=== PATIENT | male | born 1960 | race Caucasian/White ===

== ENCOUNTER 2017-07-14 08:42 | Outpatient (CLI) | payer BC ==
[2017-07-14 12:18] LABS: HEMOGLOBIN A1C 0.68 g/dL
[2017-07-14 12:21] LABS: ALBUMIN/GLOBULIN RATIO 1.6 (1.0-2.2); BILIRUBIN,TOTAL 0.6 mg/dL (0.2-1.0); BUN - BLOOD UREA NITROGEN 17 mg/dL (6-20); CALCIUM 9.4 mg/dL (8.5-10.3); CARBON DIOXIDE - CO2 24 mmol/L (21-32); CHLORIDE 104 mmol/L (101-111); CHOL/HDL RATIO 3.5 (<5.0); CHOLESTEROL 205 mg/dL; CREATININE 0.9 mg/dL (0.6-1.2); GFR - MDRD 86 (>89); GLUCOSE 99 mg/dL (70-100); HDL CHOLESTEROL 58 mg/dL; POTASSIUM 3.8 mmol/L (3.5-5.0); SODIUM 137 mmol/L (135-145); TOTAL PROTEIN 7.3 g/dL (6.7-8.2); TRIGLYCERIDES 469 mg/dL
[2017-07-14 12:41] LABS: LDL CHOLESTEROL,DIRECT 103 mg/dL
== END 2017-07-14 08:43 | disposition home or self-care (01) ==
LOC: LAB.F 08:42
PROVIDERS: ATTEND Internal Medicine
DX: Z79.899 Other long term (current) drug therapy (principal); I10 Essential (primary) hypertension; G62.9 Polyneuropathy, unspecified
CPT/HCPCS: 36415; 80053; 80061; 82550; 83036

== ENCOUNTER 2018-01-19 07:15 | Outpatient (CLI) | payer BC ==
[2018-01-19 11:46] LABS: CHOL/HDL RATIO 4.2 (<5.0); CHOLESTEROL 216 mg/dL; HDL CHOLESTEROL 52 mg/dL; LDL CHOLESTEROL,CALCULATED 88 mg/dL; LDL/HDL RATIO 1.7 (<3.6); VLDL CHOLESTEROL 76 mg/dL
== END 2018-01-19 07:16 | disposition home or self-care (01) ==
LOC: LAB.F 07:15
PROVIDERS: ATTEND Internal Medicine
DX: E78.5 Hyperlipidemia, unspecified (principal)
CPT/HCPCS: 36415; 80061; 83721

== ENCOUNTER 2019-07-26 10:13 | Outpatient (CLI) | payer BC ==
[2019-07-26 18:39] LABS: BUN - BLOOD UREA NITROGEN 14 mg/dL (6-20); CALCIUM 9.2 mg/dL (8.5-10.3); CARBON DIOXIDE - CO2 28 mmol/L (21-32); CHLORIDE 102 mmol/L (101-111); CHOL/HDL RATIO 4.7 (<5.0); CHOLESTEROL 242 mg/dL; CREATININE 0.9 mg/dL (0.6-1.2); GFR - MDRD 86 (>89); GLUCOSE 107 mg/dL (70-100); HDL CHOLESTEROL 52 mg/dL; SODIUM 139 mmol/L (135-145)
[2019-07-26 19:02] LABS: HB2 TOTAL 15.3 g/dL; HEMOGLOBIN A1C 0.64 g/dL
[2019-07-26 19:50] LABS: LDL CHOLESTEROL,DIRECT 138 mg/dL; LDLD/HDL RATIO 2.7 (<3.6)
== END 2019-07-26 10:14 | disposition home or self-care (01) ==
LOC: LAB.S 10:13
PROVIDERS: ATTEND Internal Medicine
DX: Z79.899 Other long term (current) drug therapy (principal); E78.1 Pure hyperglyceridemia; Z13.6 Encounter for screening for cardiovascular disorders; R73.01 Impaired fasting glucose
CPT/HCPCS: 36415; 80048; 80061; 83036; 83721

== ENCOUNTER 2020-08-10 09:38 | Outpatient (CLI) | payer BC ==
[2020-08-10 10:08] LABS: BASOPHILS % (AUTO) 0.5 %; EOSINOPHILS # (AUTO) 0.1 10^3/uL (0.0-0.7); EOSINOPHILS % (AUTO) 0.7 %; HGB - HEMOGLOBIN 16.3 g/dL (14.0-18.0); LYMPHOCYTES # (AUTO) 4.1 10^3/uL (1.5-3.5); LYMPHOCYTES % (AUTO) 54.8 %; MEAN CORPUSCULAR HEMOGLOBIN 32.8 pg (27.0-31.0); MEAN CORPUSCULAR VOLUME 96.4 fL (80.0-94.0); MEAN PLATELET VOLUME 9.9 fL (7.4-11.4); MONOCYTES # (AUTO) 0.4 10^3/uL (0.0-1.0); MONOCYTES % (AUTO) 5.8 %; NEUTROPHILS # (AUTO) 2.8 10^3/uL (1.5-6.6); NEUTROPHILS % (AUTO) 37.8 %; PLT - PLATELET COUNT 200 10^3/uL (130-450); RED BLOOD COUNT 4.97 10^6/uL (4.70-6.10); RED CELL DISTRIBUTION WIDTH 12.5 % (12.0-15.0); WHITE BLOOD COUNT 7.4 x10^3/uL (4.8-10.8)
[2020-08-10 10:28] LABS: ALBUMIN 4.8 g/dL (3.2-5.5); ALBUMIN/GLOBULIN RATIO 1.6 (1.0-2.2); ALKALINE PHOSPHATASE 62 IU/L (42-121); ALT ALANINE AMINOTRANSFERASE 48 IU/L (10-60); AST ASPARTATE AMINOTRANSFERASE 40 IU/L (10-42); BILIRUBIN,TOTAL 1.1 mg/dL (0.2-1.0); BUN - BLOOD UREA NITROGEN 16 mg/dL (6-20); CALCIUM 9.3 mg/dL (8.5-10.3); CARBON DIOXIDE - CO2 24 mmol/L (21-32); CHLORIDE 99 mmol/L (101-111); CHOL/HDL RATIO 4.1 (<5.0); CHOLESTEROL 238 mg/dL; CK- CREATINE KINASE 151 IU/L (22-269); CREATININE 0.9 mg/dL (0.6-1.2); GLUCOSE 105 mg/dL (70-100); HDL CHOLESTEROL 58 mg/dL; SODIUM 137 mmol/L (135-145); TOTAL PROTEIN 7.8 g/dL (6.7-8.2)
[2020-08-10 10:57] LABS: LDL CHOLESTEROL,DIRECT 93 mg/dL; LDLD/HDL RATIO 1.6 (<3.6)
[2020-08-10 13:25] LABS: HEMOGLOBIN A1c% 5.5 % (4.27-6.07)
== END 2020-08-10 09:39 | disposition home or self-care (01) ==
LOC: LAB 09:38
PROVIDERS: ATTEND Internal Medicine
DX: Z13.6 Encounter for screening for cardiovascular disorders (principal); R74.8 Abnormal levels of other serum enzymes; E78.5 Hyperlipidemia, unspecified; Z79.899 Other long term (current) drug therapy; G62.9 Polyneuropathy, unspecified; I10 Essential (primary) hypertension; R73.01 Impaired fasting glucose
CPT/HCPCS: 36415; 80053; 80061; 82550; 83036; 83721; 84443; 85025

== ENCOUNTER 2023-08-22 10:27 | Outpatient (CLI) | payer BC ==
[2023-08-22 14:56] LABS: BASOPHILS # (AUTO) 0.1 10^3/uL (0.0-0.1); BASOPHILS % (AUTO) 0.8 %; EOSINOPHILS % (AUTO) 0.7 %; HCT - HEMATOCRIT 46.6 % (42.0-52.0); HGB - HEMOGLOBIN 15.7 g/dL (14.0-18.0); LYMPHOCYTES # (AUTO) 2.8 10^3/uL (1.5-3.5); MEAN CORPUSCULAR HEMOGLOBIN 32.6 pg (27.0-31.0); MEAN CORPUSCULAR HGB CONC 33.7 g/dL (32.0-36.0); MEAN CORPUSCULAR VOLUME 96.7 fL (80.0-94.0); MEAN PLATELET VOLUME 10.3 fL (7.4-11.4); MONOCYTES # (AUTO) 0.6 10^3/uL (0.0-1.0); MONOCYTES % (AUTO) 9.6 %; NEUTROPHILS # (AUTO) 2.5 10^3/uL (1.5-6.6); NEUTROPHILS % (AUTO) 41.6 %; PLT - PLATELET COUNT 167 10^3/uL (130-450); RED BLOOD COUNT 4.82 10^6/uL (4.70-6.10); RED CELL DISTRIBUTION WIDTH 12.3 % (12.0-15.0)
[2023-08-22 15:52] LABS: ALBUMIN 4.7 g/dL (3.2-5.5); ALBUMIN/GLOBULIN RATIO 1.7 (1.0-2.2); ALKALINE PHOSPHATASE 63 IU/L (42-121); ALT ALANINE AMINOTRANSFERASE 52 IU/L (10-60); AST ASPARTATE AMINOTRANSFERASE 35 IU/L (10-42); BILIRUBIN,TOTAL 0.8 mg/dL (0.2-1.0); BUN - BLOOD UREA NITROGEN 16 mg/dL (6-20); CALCIUM 9.7 mg/dL (8.5-10.3); CARBON DIOXIDE - CO2 26 mmol/L (21-32); CHLORIDE 100 mmol/L (101-111); CHOL/HDL RATIO 4.1 (<5.0); CHOLESTEROL 245 mg/dL; CK- CREATINE KINASE 96 IU/L (30-223); CREATININE 0.9 mg/dL (0.6-1.3); GFR - MDRD 85 (>89); GLUCOSE 106 mg/dL (74-104); HDL CHOLESTEROL 60 mg/dL; POTASSIUM 4.2 mmol/L (3.5-4.5); SODIUM 138 mmol/L (135-145); TOTAL PROTEIN 7.4 g/dL (6.4-8.9); TRIGLYCERIDES 416 mg/dL (48-352)
[2023-08-22 16:29] LABS: LDL CHOLESTEROL,DIRECT 149 mg/dL (75-193); LDLD/HDL RATIO 2.5 (<3.6)
[2023-08-22 18:26] LABS: PSA TOTAL 0.417 ng/mL (0.000-2.000)
[2023-08-22 20:06] LABS: THYROID STIMULATING HORMONE 2.03 uIU/mL (0.34-5.60)
[2023-08-25 20:31] LABS: ESTIMATED AVERAGE GLUCOSE 111 mg/dL (70-100); HEMOGLOBIN A1c% 5.5 % (4.27-6.07)
== END 2023-08-22 10:28 | disposition home or self-care (01) ==
LOC: LAB.S 10:27
PROVIDERS: ATTEND Internal Medicine
DX: Z00.00 Encounter for general adult medical examination without abnormal findings (principal); R74.8 Abnormal levels of other serum enzymes; Z86.010 Personal history of colon polyps; E78.5 Hyperlipidemia, unspecified; I10 Essential (primary) hypertension; E78.1 Pure hyperglyceridemia; R73.01 Impaired fasting glucose; R35.1 Nocturia; G62.9 Polyneuropathy, unspecified; L71.9 Rosacea, unspecified; Z79.899 Other long term (current) drug therapy
CPT/HCPCS: 36415; 80053; 80061; 82550; 83036; 83721; 84153; 84443; 85025

== ENCOUNTER 2024-03-26 11:59 | Emergency (ER) | payer MEDICARE, BC ==
[2024-03-26 12:34] VITALS: BP 150/90; O2SAT 100
--- NOTE | 2024-03-26 13:59 | ED Physician Documentation ---
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 He was using a miter saw, and notes that the blade had stopped, and when he was doing adjustments he and the volar surface of his left thumb. He washed it really good at home and was holding pressure but felt like it was likely large enough that it may need sutures therefore came into the emergency department. He is up-to-date on tetanus, and denies any other concerns today. PD PAST MEDICAL HISTORY - Past Medical History Past Medical History: Yes Cardiovascular: Hypertension, High cholesterol - Past Surgical History Past Surgical History: Yes HEENT: Tonsil/Adenoidectomy - Allergies Allergies/Adverse Reactions: Allergies Allergy/AdvReac Type Severity Reaction Status Date / Time No Known Drug Allergies Allergy Verified 03/26/24 12:22 - Social History Does the pt smoke?: No Smoking Status: Never smoker Does the pt drink ETOH?: No Does the pt have substance abuse?: No - Immunizations Immunizations are current?: Yes - POLST Patient has POLST: No PD ED PE NORMAL - Vitals Vital signs reviewed: Yes - General General: Alert and oriented X 3, No acute distress, Well developed/nourished - Derm Derm: Normal color, Warm and dry, Other (Approximately 2cm laceration w/ flap and a number of other teresa-crossed lacerations fo the volar surface of the left thumb, no visible tendon involvement, bleeding briskly controlled with pressure.) - Extremities Extremities: No deformity, Other (Normal flexion extension of thumb, slightly decreased distal sensation but brisk cap refill) - Neuro Neuro: Alert and oriented X 3 Eye Opening: Spontaneous Motor: Obeys Commands Verbal: Oriented GCS Score: 15 - Psych Psych: Normal mood, Normal affect Results - Vitals Vitals: Vital Signs - 24 hr 03/26/24 12:22 Temperature 36.5 C Heart Rate 85 Respiratory 16 Rate Blood Pressure 150/90 H O2 Saturation 100 Oxygen O2 Source Room air Procedures - Laceration (location) Finger left Length in cm: 2 Wound type: Irregular, Into subcut fat Neurovascular status: Sensory intact, Motor intact, Vascular intact Anesthesia: Lidocaine 1% Wound preparation: Hibiclens, Irrigated copiously NS Skin layer closure: Nylon, Interrupted, Size #-0 - enter number (4), Sutures - enter # (11) Other: Patient tolerated well, Dressing applied, Tetanus UTD PD Medical Decision Making - ED course Complexity details: d/w patient ED course: 63-year-old male presented With a left thumb laceration after getting caught in a miter saw. He has approximately 2 cm laceration on the volar surface of the left thumb with multiple other smaller lacerations surrounding the initial laceration. Tissue is friable and I discussed with patient that the flap likely is not salvageable but recommended that we suture close for now and allow for healing from the bottom up by secondary intention. Patient verbally agreed to proceed. Digital block was performed with 1% lidocaine and after adequate anesthesia, cleaned thoroughly with normal saline and Hibiclens. I then closed for hemostasis purposes with 11 5. 0.0 nylon sutures. The patient tolerated very well. There was hemostasis achieved. A nonstick dressing was applied and patient was advised of wound care instructions at home as well as return precautions for any signs of infection. Sutures will need to be removed in 10 to 14 days. I did discuss with patient anticipate they will be some scarring in this area and potentially slower healing due to the nature of the wound. The patient is up-to-date on tetanus therefore did not require 1 prior to discharge. Departure - Departure Disposition: 01 Home, Self Care Clinical Impression: Laceration Laceration of left thumb Qualifiers: Encounter type: initial encounter Damage to nail status: without damage Foreign body presence: without foreign body Qualified Code(s): S61.012A - Laceration without foreign body of left thumb without damage to nail, initial encounter Condition: Good Instructions: ED Laceration All Comments: Kalia, it was nice to meet you. I am sorry for the long wait today. We did end up putting 11 sutures in your thumb. It isn't so much for scar prevention but for hemostasis. The wound will mostly need to heal from the bottom up. Please keep it dry for the next 24 hours and then you can wash normally, and keep clean. It return at any point in time if there are signs of infection. Forms: PCP List Discharge Date/Time: 03/26/24 15:14
== END 2024-03-26 15:14 | disposition home or self-care (01) ==
LOC: ED 11:59
DX: S61.012A Laceration without foreign body of left thumb without damage to nail, initial encounter (principal); W31.2XXA Contact with powered woodworking and forming machines, initial encounter
CPT/HCPCS: 12001; 99283